=== PATIENT | male | born 1935 | race Caucasian/White ===

== ENCOUNTER 2023-11-18 12:08 | Outpatient (CLI) | payer MEDICARE, SELFPAY ==
[2023-11-18] VITALS (8 sets, daily range): BP systolic 146–186; BP diastolic 71–89; PULSE 66–79; RESP 16–28; TEMP 36.8; O2SAT 96–98
--- NOTE | 2023-11-18 12:52 | PC.NURSE ---
Patient reports BLE swelling that began approximately 6 months ago but has been significantly worse recently. When asked to clarify recently he reports swelling has progressed in the last month. He reports this is causing an increase in pain as well. He has not been seen for this. BLE edema noted with L>R. He has compression stockings currently on. Patient encouraged to see his PCP for these complaints. Dr. Elam made aware of these new symptoms.
--- NOTE | 2023-11-18 13:04 | DI.RAD.S_ITS ---
PROCEDURE: PAIN L/S TRANSFORAMINAL INJECT INDICATIONS: LEFT L4-5 TF STELLA. COMPARISON: [facility], , PAIN L/S TRANSFORAMINAL INJECT, 04/24/2023, 14:44. FINDINGS: Fluoroscopic spot filming was performed to verify placement of spinal needles at the left L4-5 level(s), as labeled on the films. Appropriate location(s) of the needle tip(s) was confirmed by injection of iodinated contrast. IMPRESSION: Fluoroscopic guidance utilized for an epidural injection at L4-5. Dictated by: Jacoby Booker M.D. on 11/18/2023 at 15:13 Approved by: Jacoby Booker M.D. on 11/18/2023 at 15:13
[2023-11-18] MEDS: MIDAZOLAM 2 MG/2 ML VIAL IV (13:26)
[2023-11-18] MEDS: BUPIVACAINE 0.25% (PF) VIAL 2 ML INJ (13:33)
[2023-11-18] MEDS: iopamidoL 15 ML VIAL 3 ML INJ (13:33)
[2023-11-18] MEDS: DEXAMETHASONE 10 MG/ML VIAL INJ (13:33)
[2023-11-18] MEDS: BETAMETHASONE 30 MG/5 ML MDV 6 MG INJ (13:34)
--- NOTE | 2023-11-18 13:47 | P.PCN_ITS ---
Date/Time/Diagnoses Date of procedure: 11/18/23 Time of procedure: 13:47 Pre-procedure diagnosis: 1. FORAMINAL STENOSIS WITH LE SYMPTOMS Post-procedure diagnosis: same Procedure Notes Procedure: 1. FLUOROSCOPICALLY GUIDED CONTRAST CONTROLLED TRANSFORAMINAL EPIDURAL STEROID INJECTION - LEFT L4/5 Indications: Dheeraj is referred by Dr. Clarke for treatment of Foraminal Stenosis with Left LE Symptoms Physician: Jassi Elam Total Fluoroscopy time (seconds): 12 Total sedation minutes: 14 Complications: none Procedure in detail & Post-procedure care: FINDINGS Foraminal Nerve Root Compression secondary to disc disease and facet hypertrophy DESCRIPTION OF PROCEDURE Following review of allergy and review of potential side effects and complications, including, but not necessarily limited to, infection, allergic reaction, local tissue breakdown, stroke, temporary or permanent nerve injury, paralysis, and possible , the patient indicated that the patient understood and agreed to proceed. An informed consent document was signed by the patient, witnessed by a nurse, and placed in the patient's chart. Additionally, other treatment options including medications, modalities, and physical therapy were reviewed with the patient. After review of previous anaesthesic history and IV conscious sedation the patient was deemed safe to proceed with today?s procedure with IV conscious sedation as ASA class II designation. Safety time-out was performed to confirm patient ID, procedure to be performed and site of procedure. IV sedation was accomplished with a combination of 2mg of Versed administered by the RN after DO order, titrated to patient comfort during the course of the procedure while the patient remained responsive to all verbal commands In the prone position following sterile prep and drape of the lumbar region, the left L4/5 posterior neuroforamen was identified fluoroscopically. The skin was anesthetized via a 25-gauge 1.5-inch needle with 1% lidocaine solution. At this point, a 25-gauge 3.5-inch spinal needle was atraumatically introduced and advanced under fluoroscopic guidance through the posterior left L4/5 neuroforamen to approximately the anterior aspect of the canal. Depth was confirmed on lateral view. Following negative aspiration, injection of approximately 1.5 cc of Isovue 200 under live fluoroscopy in the AP view confirmed excellent flow along the nerve root, into the epidural space without vascular or intrathecal uptake observed Radiological data, including multiple fluoroscopic views of the lumbosacral spine, reveal a spinal needle at the left L4/5 posterior neuroforamen. Subsequent views show flow of contrast material flowing superiorly and inferiorly along the nerve root confirming epidural flow. Subsequently, a test dose of 1.5 cc of 1% lidocaine solution was administered and patient was observed for two minutes for signs or symptoms of complications, including abdominal pain, shortness of breath, bilateral upper or lower extremity weakness, nausea and vomiting, prior to steroid injection. At this point, a total of 2cc or 10mg of dexamethasone and 6mg of betamethasone was injected without incident. The procedure tolerated the procedure well without signs or symptoms of complications prior to transfer to the recovery area continued monitoring without incident. The patient was then transferred to the recovery area where they were observed for an appropriate time after the injection. The patient reported a VAS score of 7 prior to the procedure and a post- procedure VAS of 0. POST OP INSTRUCTIONS The patient was provided a Pain Log to continue to record their response to the target-specific procedure prior to follow-up visit with their referring physician. Additionally, specific post-injection care instructions and a contact number to our office were provided if concerns arise regarding possible complications associated with the procedure are suspected.
--- NOTE | 2023-11-18 14:01 | PC.NURSE ---
Patient ready for discharge. Transferred to from recliner with SBA. When lifting feet into noted that he was unable to lift his LLE into place. States that's weird and reports this is a change from pre-injection. Able to march in place, however; placed back in to monitor longer. Dr. Elam notified. He reports it feels numb from thigh down. Care ongoing.
--- NOTE | 2023-11-18 14:56 | PC.NURSE ---
Dr. Elam asked by this nurse before the procedure started, while in the procedure room, if he wanted an US the patient's LLE. He stated, no. We proceeded with the procedure.
--- NOTE | 2023-11-18 15:13 | PC.NURSE ---
Patient stood with 2 person SBA. Reports being at his baseline mobility using a cane. Assisted to BR via WC. Reports no further numbness or weakness to either lower extremities. Able to ambulate with cane.
== END 2023-11-18 15:10 | disposition home or self-care (01) ==
LOC: RAD 12:09
PROVIDERS: Family Provider Internal Medicine; PCP Internal Medicine; Referring Provider Physical Medicine & Rehabilitation; Visit Provider Physical Medicine & Rehabilitation
DX: M51.27 Other intervertebral disc displacement, lumbosacral region (principal); M51.16 Intervertebral disc disorders with radiculopathy, lumbar region
CPT/HCPCS: 64483; 99152; J0702; J1100; J2250; J3490

== ENCOUNTER → 2024-01-22 18:28 | Outpatient (CLI) | payer MEDICARE, SELFPAY ==
--- NOTE | 2024-01-22 18:29 | DI.MRI.S_ITS ---
PROCEDURE: MR KNEE LT WO CON INDICATIONS: acute medial pain TECHNIQUE: Noncontrast sagittal PD fast spin echo and T2 fast spin echo with fat saturation, sagittal 3-D FLASH with fat saturation; coronal T1 spin echo and PD fast spin echo with fat saturation, and axial PD fast spin echo with fat saturation through the knee. COMPARISON: [facility], RG, XR KNEE 4V LEFT, 12/05/2023, 13:28. FINDINGS: Image quality: Images are mildly degraded by motion as well as wrap and other artifacts. Diagnostic information is obtained. Anterior cruciate ligament: Intact. Posterior cruciate ligament: Intact. Medial collateral ligament: There is edema surrounding the medial collateral ligament with attenuation and likely partial disruption of fibers compatible with grade 2 sprain. Lateral collateral ligament: Grade 1 sprain of the lateral collateral ligament. Medial meniscus: Complex tearing of the medial meniscus with a horizontal oblique component of the posterior horn and body extending to the tibial articular surface and an inferiorly displaced meniscal flap at the meniscal body extending into the medial tibial gutter. Suspected shallow radial component at the junction of the posterior horn and body. Meniscal body is mildly extruded beyond the femorotibial joint line. Lateral meniscus: Horizontal oblique tearing of the lateral meniscus involving the body and likely the posterior horn extending to the inner third of the femoral articular surface. Medial and lateral tendons: The semimembranosus tendon insertions appear intact. Visualized portions of the pes anserinus tendons appear normal. The popliteus tendon is intact. Iliotibial band appears normal. Anterior structures: The quadriceps and patellar tendons appear intact. No patellar subluxation. No femoral trochlear dysplasia or ventral trochlear prominence. No edema in the infrapatellar fat pad. Bones and cartilage: Mild osseous edema at the medial tibial plateau is likely reactive to the adjacent meniscal tear or ligament sprain. No definite acute trabecular bone injury or osseous fracture. Medial femorotibial cartilage: High-grade partial thickness cartilage thinning and irregularity in the weight-bearing portion of the medial femorotibial compartment. Lateral femorotibial cartilage: Focal full-thickness cartilage loss in the central weight-bearing portion of the lateral tibial plateau with subchondral osteophyte formation. Background moderate chondromalacia. Patellofemoral cartilage: Full-thickness cartilage loss is seen at the lateral femoral trochlea with small marginal osteophytes and remodeling of the articular surfaces. There is high-grade and full-thickness cartilage loss throughout the patella and the remainder of the anterior compartment. Soft tissues: There is a moderate to large joint effusion. Trace medial popliteal cyst. Diffuse subcutaneous edema is seen surrounding the knee. The musculature surrounding the knee is age-appropriate in bulk. IMPRESSION: 1. Grade 2 sprain/partial tear of the medial collateral ligament. The majority of the ligament fibers remain in continuity. 2. Grade 1 sprain of the lateral collateral ligament. 3. Complex tearing of the medial meniscus with horizontal oblique component of the posterior horn and body extending to the tibial articular surface as well as a meniscal flap component extending into the medial tibial gutter and a probable shallow radial component at the junction of the posterior horn and body. 4. Horizontal oblique tearing at the posterior horn and body of the lateral meniscus extending to the inner third of the femoral articular surface. 5. 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 Focal full-thickness cartilage loss and subchondral osteophyte formation is seen in the lateral compartment and there is grade 3 chondromalacia throughout the weight-bearing portion of the medial compartment. 6. Cruciate ligaments are intact. No acute trabecular bone injury or fracture. 7. Moderate to large joint effusion. Approved by: Tez Phillips M.D. on 01/22/2024 at 20:55
== END ==
PROVIDERS: Family Provider Internal Medicine; PCP Internal Medicine; Referring Provider Physical Medicine & Rehabilitation; Visit Provider Physical Medicine & Rehabilitation
DX: S83.232A Complex tear of medial meniscus, current injury, left knee, initial encounter (principal); S83.282A Other tear of lateral meniscus, current injury, left knee, initial encounter; S83.412A Sprain of medial collateral ligament of left knee, initial encounter; S83.422A Sprain of lateral collateral ligament of left knee, initial encounter; M17.12 Unilateral primary osteoarthritis, left knee; M25.462 Effusion, left knee
CPT/HCPCS: 73721